=== PATIENT | female | born 1955 | race Caucasian/White ===

== ENCOUNTER 2017-06-23 11:57 | Day surgery (SDC) | payer BC ==
[~2017-06-23 11:57] MED LIST: RINGER'S SOLUTION,LACTATED 1,000 ML IV PRN
[2017-06-23] MEDS ORDERED: RINGER'S SOLUTION,LACTATED 1,000 ML IV ONE (12:22)
--- NOTE | 2017-06-23 13:17 | OR ---
Operative Report - Dictated Report Narrative: Date: 06/23/2017 Preoperative diagnosis: Screening for colon cancer Postoperative diagnosis: Normal colon Procedure: Total colonoscopy Staff surgeon: Blane Urbina MD Anesthesia: MAC per PERSONAL LINES ACCOUNT MANAGER EBL: None Specimens: None Description of procedure: After informed consent and appropriate sedation the patient was placed in left lateral decubitus position. Flexible fiberoptic video colonoscope was introduced and advanced under direct vision without difficulty to the cecum. The usual landmarks were identified. Preparation was excellent and excellent views were obtained. The findings were of a normal cecum, ascending colon, hepatic flexure, transverse colon, splenic flexure, descending colon, sigmoid colon, rectum, normal retroflex view. External inspection of the anus was normal as well as sphincter tone. The mucosal collar, vasculature, and texture were normal throughout. No suspicious masses were seen. The patient tolerated the procedure well without apparent complications and was discharged from the endoscopy suite in stable condition.
[2017-06-23 14:02] VITALS: BP 110/65
== END 2017-06-23 11:58 | disposition home or self-care (01) ==
LOC: AMB 11:57
PROVIDERS: ATTEND Specialist
PROC: 0DJD8ZZ Inspection of Lower Intestinal Tract, Via Natural or Artificial Opening Endoscopic (ICD-10-PCS; principal; 2017-06-23 13:00)
DX: Z87.891 Personal history of nicotine dependence (principal); Z12.11 Encounter for screening for malignant neoplasm of colon; Z86.010 Personal history of colon polyps; Z80.0 Family history of malignant neoplasm of digestive organs; Z68.33 Body mass index [BMI] 33.0-33.9, adult